=== PATIENT | female | born 1970 | race Caucasian/White ===

== ENCOUNTER → 2017-10-23 | Outpatient (CLI) | payer OTHER ==
[2017-10-23 12:15] LABS: BASO % 0.6 %; BASO ABS # 0.05 K/uL (0-0.2); EOS % 1.6 %; EOS ABS # 0.13 K/uL (0-0.5); HEMATOCRIT 39.8 % (37-47); HEMOGLOBIN 12.7 g/dL (12.0-16.0); IG# 0.01 K/uL (0.00-0.02); LYMPH % 25.4 %; LYMPH ABS # 2.03 K/uL (1.2-3.4); MEAN CELL VOLUME 88.4 fL (80-100); MEAN CORPUSCULAR HEMOGLOBIN 28.2 pg (25-34); MEAN CORPUSCULAR HGB CONC 31.9 g/dl (32-36); MEAN PLATELET VOLUME 10.3 fL (7.4-10.4); MONO % 8.8 %; NEUT % 63.5 %; NEUT ABS # 5.08 K/uL (1.4-6.5); PLATELET COUNT 302 K/uL (130-400); RED CELL DISTRIBUTION WIDTH CV 15.7 % (11.5-14.5); RED CELL DISTRIBUTION WIDTH SD 50.9 fL (36.4-46.3)
[2017-10-23 13:04] LABS: ALBUMIN 3.4 gm/dl (3.4-5.0); ALT/SGPT 23 U/L (12-78); BLOOD UREA NITROGEN 14 mg/dl (7-18); CALCIUM 9.2 mg/dl (8.5-10.1); CARBON DIOXIDE 26 mmol/L (21-32); CHOLESTEROL 201 mg/dl (0-200); CREATININE 0.98 mg/dl (0.60-1.20); GLUCOSE 95 mg/dl (70-99); POTASSIUM 4.2 mmol/L (3.5-5.1); SODIUM 139 mmol/L (136-145)
[2017-10-23 13:15] LABS: ALKALINE PHOSPHATASE 128 U/L (45-117); AST/SGOT 13 U/L (15-37); LDL CHOLESTEROL CALCULATED 109 mg/dl; TOTAL PROTEIN 8.2 gm/dl (6.4-8.2)
== END | disposition home or self-care (01) ==
LOC: C.LABBFT 07:22
PROVIDERS: ATTEND Internal Medicine
DX: Z00.00 Encounter for general adult medical examination without abnormal findings (principal); N94.6 Dysmenorrhea, unspecified; N92.0 Excessive and frequent menstruation with regular cycle

== ENCOUNTER 2023-10-03 08:41 | Inpatient (IN) ==
--- NOTE | 2023-10-03 09:21 | Emergency Department Note ---
Impression & Plan Preseptal cellulitis of right eye, Cellulitis of face ED Provider Note NAME: KENAN CLARK AGE: 53 SEX: F : 1970 ARRIVES VIA: Walk-In INFORMANT: Patient, ED PROVIDER(S): Jean Carlos Perez DO CHIEF COMPLAINT: Facial pain HPI: The patient is a 53-year-old female who presented to the emergency department for an evaluation of right-sided facial swelling. The patient started noticing facial swelling over the course the last 5 to 6 days. She was seen in our facility and started on antibiotics. She thinks that she started having an infection under her armpit. She has had staph infections in the armpit in the past. She was seen here and started on antibiotics. She also had a CT of the face. The patient returns today because of worsening swelling and pain. She denies having any chest pain or difficulty breathing. She denies having any headache. ROS: See above HPI for pertinent positives & negatives. A total of 10 systems reviewed and were otherwise negative. PAST MEDICAL HISTORY: See Below PAST SURGICAL HISTORY: See Below FAMILY HISTORY: See Below SOCIAL HISTORY: See Below HOME MEDICATIONS: See Below ALLERGIES: See Below VITALS: See Below PHYSICAL EXAMINATION: GENERAL: Patient is awake alert in no acute distress patient is resting comfortably and showing no signs of anxiety EYES: The right conjunctiva is injected. The left conjunctiva is clear. Pupils are equal round and reactive to light. EARS, NOSE, MOUTH AND THROAT: The nose is without any evidence of any deformity. There is significant swelling noted over the right side of the face. There is no pain with extraocular muscle testing. NECK: The neck is nontender and supple. RESPIRATORY: Normal respiratory effort is noted there is no evidence of wheezing rhonchi or rales CARDIOVASCULAR: Regular rate and rhythm noted there no murmurs rubs or gallops normal S1 normal S2. GASTROINTESTINAL: The abdomen is soft. Abdomen is nontender. MUSCULOSKELETAL/EXTREMITIES: There is no evidence of gross deformity full range of motion is noted in the hips and shoulders. SKIN: There is no obvious evidence of any rash. There are no petechiae, pallor or cyanosis noted. NEUROLOGIC: Patient is awake alert and oriented x3 MEDICAL DECISION MAKING: The patient is a 53-year-old female who presented to the emergency department with facial swelling. The patient was recently diagnosed with periorbital cellulitis. She was placed on appropriate antibiotic therapy but presents the emergency department because of worsening symptoms. I discussed patient's laboratory results with her. I discussed her condition with the oral maxillofacial surgeon. At this time he feels the patient may be a better candidate for IV antibiotics. For this reason I discussed the patient's condition with the [facility] They have agreed to evaluate the patient in the emergency department for further management and disposition. The patient was treated with IV antibiotics. Triage Nursing notes reviewed. Prior medical records reviewed Vital Signs: reviewed and remarkable for elevated blood pressure. Differential diagnosis: Cellulitis, abscess, MRSA infection, DVT, necrotizing fasciitis, dermatitis, drug eruption, allergic reaction, as well as other pathologies. ER treatment provided: See below Diagnostics interpreted by me: ECG: none Cardiac Monitoring: An order was placed for continuous cardiac monitoring. The monitor shows a rate of 69 bpm with sinus rhythm. Laboratory studies: As stated above and show below. Imaging studies: See below. Radiographic imaging was reviewed by myself Consultation(s): I discussed this case with Dr. Sheffield who is on-call for oral maxillofacial surgery. I discussed this case with Kenya who is on-call [facility]. Past Med/Surg History Medical History (Updated 10/03/23 @ 13:28 by Jean Carlos Perez DO) No chronic diseases present Surgical History (Updated 10/03/23 @ 11:04 by Kenya Mitchell PA-C) History of dental surgery Hx of breast reduction, elective Family History (Updated 10/03/23 @ 11:06 by Kenya Mitchell PA-C) Mother Diabetes Brother Diabetes Social History (Updated 10/03/23 @ 11:05 by Kenya Mitchell PA-C) Smoking Status: Never smoker Hx Alcohol Use: Yes Alcohol Intake Frequency Comment: Very Rare use Hx Substance Use: No Preferred Language: Canadian Feels Safe at Home: Yes Allergies Allergies Allergy/AdvReac Type Severity Reaction Status Date / Time sulfamethoxazole AdvReac Intermediate JOSE Verified 10/03/23 11:33 [From Bactrim] trimethoprim [From Bactrim] AdvReac Intermediate JOSE Verified 10/03/23 11:33 Home Meds Home Medications Medication Instructions Recorded Confirmed semaglutide (weight loss) 2.4 2.4 mg subcut WK 10/01/23 10/03/23 mg/0.75 mL subcutaneous pen injector (Chris) sulfamethoxazole 800 1 tab PO BID 10/01/23 10/03/23 mg-trimethoprim 160 mg tablet triamcinolone acetonide 0.1 % 1 applic topical BID 10/01/23 10/03/23 topical ointment Previous Rx's Medication Instructions Recorded amoxicillin 875 mg-potassium 1 tab PO BID 10 days #20 tabs 10/01/23 clavulanate 125 mg tablet Results & Data (ED) Vital Signs Vital Signs - 24 hr 10/03/23 08:59 10/03/23 09:30 10/03/23 10:27 Temperature 36.3 C L Temperature Source Temporal Artery Scan Pulse Rate 68 Pulse Rate [Apical] 66 70 Pulse Rhythm [Apical] Regular Respiratory Rate 18 16 16 Blood Pressure 154/114 H Blood Pressure [Left Arm] Blood Pressure Mean 127 Blood Pressure Mean [Left Arm] Pulse Oximetry 97 100 100 Oxygen Delivery Method Room Air Room Air Room Air Sepsis New/Unexplained Change in Mental Status No Sepsis Action Taken by Nursing No Action Required 10/03/23 11:13 10/03/23 11:33 10/03/23 12:48 Temperature Temperature Source Pulse Rate 69 Pulse Rate [Apical] 68 67 Pulse Rhythm [Apical] Respiratory Rate 16 19 Blood Pressure Blood Pressure [Left Arm] 164/88 H Blood Pressure Mean Blood Pressure Mean [Left Arm] 113 Pulse Oximetry 100 Oxygen Delivery Method Room Air Sepsis New/Unexplained Change in Mental Status Sepsis Action Taken by Shelter Medications Current Medication List: was personally reviewed by me Laboratory Data Attestation: I reviewed the patient's lab results. 10/03/23 09:24 10/03/23 09:24 Lab Results 10/03/23 Range/Units 09:24 WBC 10.60 (4.8-10.8) K/ul RBC 5.00 (4.20-5.40) M/uL Hgb 14.0 (12.0-16.0) g/dl Hct 43.8 (37.0-47.0) % MCV 87.6 (80.0-100.0) fL MCH 28.0 (25.0-34.0) pg MCHC 32.0 (32.0-36.0) g/dL RDW Std Deviation 51.5 H (36.4-46.3) fL RDW Coeff of Jessica 16.4 H (11.5-14.5) % Plt Count 355 (130-400) K/uL MPV 9.8 (9.4-12.4) fL Immature Gran % (Auto) 0.4 % Neut % (Auto) 63.2 % Lymph % (Auto) 27.8 % Mathews % (Auto) 6.2 % Eos % (Auto) 1.8 % Baso % (Auto) 0.6 % Neut # (Auto) 6.70 H (1.40-6.50) K/uL Lymph # (Auto) 2.95 (1.20-3.40) K/uL Mathews # (Auto) 0.66 H (0.11-0.59) K/uL Eos # (Auto) 0.19 (0.00-0.50) K/uL Baso # (Auto) 0.06 (0.00-0.20) K/uL Immature Gran # (Auto) 0.04 (0.01-0.20) K/uL PT 9.9 (9.0-12.0) Seconds INR 0.9 (0.9-1.1) APTT 27 (21-31) Seconds PTT Ratio 1.0 Sodium 135 L (136-145) mmol/L Potassium 3.6 (3.5-5.1) mmol/L Chloride 102 (98-107) mmol/L Carbon Dioxide 24 (21-32) mmol/L Anion Gap 9 (3-11) BUN 21 (6-23) mg/dl Creatinine 1.40 H (0.6-1.2) mg/dl Est Cr Clr Drug Dosing 54.0 ml/min Est GFR ( Amer) 49.6 ml/min Est GFR (Non-Af Amer) 42.8 ml/min BUN/Creatinine Ratio 15.0 (10-20) Glucose 81 (70-99(Fasting)) mg/dl Lactate 1.3 (0.4-2.0) mmol/L Calcium 10.3 (8.6-10.3) mg/dl Magnesium 2.2 (1.7-2.4) mg/dl Total Bilirubin 0.5 (0.2-1.0) mg/dl Direct Bilirubin 0.1 (0-0.2) mg/dl AST 25 (13-39) U/L ALT 19 (7-52) U/L Alkaline Phosphatase 127 H (34-104) U/L Troponin I High Sens 10.3 (0-14) pg/ml Total Protein 9.4 H (6.0-8.3) gm/dl Albumin 4.8 (3.4-5.0) gm/dl Procalcitonin < 0.05 (0-0.5) ng/ml Administered Medications Discontinued Medications Ceftriaxone Sodium (Rocephin) 2,000 mg in 50 mls @ 100 mls/hr IV NOW STA Stop: 10/03/23 09:45 Last Admin: 10/03/23 10:26 Dose: 100 mls/hr Documented By: KV Vancomycin HCl 2,000 mg/ (Sodium Chloride) 540 mls @ 200 mls/hr IV NOW ONE Stop: 10/03/23 12:11 Last Admin: 10/03/23 11:12 Dose: 200 mls/hr Documented By: KV Imaging Data Attestation: I personally reviewed and interpreted this imaging study as follows: My Impression: 1 view chest x-ray was obtained in the emergency department. My interpretation is no free air or definite infiltrate, final report below. Radiologist's Impression: Chest X-Ray 10/03/23 09:16 XR chest 1V portable HISTORY: Sepsis COMPARISON: Chest CT 11/20/2018. FINDINGS: The lungs are clear. Cardiac silhouette is normal in size. No pleural effusions. No pneumothorax. IMPRESSION: No acute process. ACT 112: Negative or not required by law. Electronically signed by: Juan Alberto Ibarra M.D. 10/03/2023 9:45 AM Discharge Plan Visit Data Chief Complaint: Facial Injury/Pain Stated Complaint: RIGHT SIDED FACIAL SWELLNG/DXD W/STAFF INFECTION ED Provider: Jean Carlos Perez Discharge Problem: Preseptal cellulitis of right eye, Cellulitis of face Patient Disposition: Being Evaluated by Hospitalist Forms Stand Alone Forms: My [facility] Prescriptions Prescriptions: No Action sulfamethoxazole-trimethoprim 800-160 mg tablet 1 tab PO BID triamcinolone acetonide 0.1 % ointment 1 applic TOPICAL BID Wegovy 2.4 mg/0.75 mL pen injector 2.4 mg SUBCUT WK amoxicillin-pot clavulanate 875-125 mg tablet 1 tab PO BID 10 Days Qty: 20 0RF Referrals Referrals: Saud Nelson MD [Primary Care Provider] -
[2023-10-03 09:43] LABS: Basophils # (auto) 0.06 K/uL (0.00-0.20); Basophils % (auto) 0.6 %; Eosinophils # (auto) 0.19 K/uL (0.00-0.50); Eosinophils % (auto) 1.8 %; Hematocrit (blood only) 43.8 % (37.0-47.0); Immature Granulocytes # (auto) 0.04 K/uL (0.01-0.20); Immature Granulocytes % (auto) 0.4 %; Lymphocytes # (auto) 2.95 K/uL (1.20-3.40); Lymphocytes % (auto) 27.8 %; Mean Corpuscular Volume 87.6 fL (80.0-100.0); Mean Platelet Volume 9.8 fL (9.4-12.4); Monocytes # (auto) 0.66 K/uL (0.11-0.59); Monocytes % (auto) 6.2 %; Neutrophils % (auto) 63.2 %; Platelet Count 355 K/uL (130-400); RDW Coefficient of Variation 16.4 % (11.5-14.5); RDW Standard Deviation 51.5 fL (36.4-46.3)
--- NOTE | 2023-10-03 09:47 | XRay Report ---
XR chest 1V portable HISTORY: Sepsis COMPARISON: Chest CT 11/20/2018. FINDINGS: The lungs are clear. Cardiac silhouette is normal in size. No pleural effusions. No pneumot horax. IMPRESSION: No acute process. ACT 112: Negative or not required by law. Electronically signed by: Juan Alberto Ibarra M.D. 10/03/2023 9:45 AM
[2023-10-03 09:55] LABS: Albumin Level 4.8 gm/dl (3.4-5.0); Bilirubin Direct 0.1 mg/dl (0-0.2); Bilirubin,Total 0.5 mg/dl (0.2-1.0); Calcium 10.3 mg/dl (8.6-10.3); Est GFR (African American) 49.6 ml/min; Est GFR (Non-African American) 42.8 ml/min; Magnesium 2.2 mg/dl (1.7-2.4); Potassium 3.6 mmol/L (3.5-5.1); Total Protein 9.4 gm/dl (6.0-8.3)
[2023-10-03 10:00] LABS: Troponin I High Sensitivity 10.3 pg/ml (0-14)
[2023-10-03 10:07] LABS: INR 0.9 (0.9-1.1); Partial Thromboplastin Time 27 Seconds (21-31); Prothrombin Time 9.9 Seconds (9.0-12.0)
[2023-10-03] MEDS: cefTRIAXone SODIUM 2,000 MG/50 ML BAG IV STA (10:26)
--- NOTE | 2023-10-03 10:53 | History & Physical Report ---
Date of Service October 03, 2023 Assessment & Plan (1) Preseptal cellulitis of right eye: (2) JOSE (acute kidney injury): (3) Adverse reaction to sulfa antibiotic: Plan 53 yr old F who is otherwise healthy being managed for the following: Periorbital Cellulitis admit to med/surg --Face CT from 10/01 IMPRESSION: 1. Right cheek and periorbital preseptal subcutaneous edema suggestive of cellulitis. No abscess.2. No postseptal inflammatory changes.3. Likely reactive cervical chain lymph nodes. superficial culture from 10/01 growing pinpoint colonies failed oral bactrim, recently started augmentin on 10/01 - will d/c both continue with IV vanco fro now ED discussed with Dr. Coleman Sheffield who also viewed images and felt no fluid collection noted apply vaseline to area bid JOSE Adverse reaction to sulfa antibiotic with JOSE 09/28 Bactrim D/C Bactrim - will list as ADR gentle fluids with IV LR @ 100cc/hr x 2L repeat bmp in a.m. DVT ppx: encourage ambulation FULL CODE PCP: Dr. Nelson Dispo: admit to medical, likely remain hospitalized for 1-2 days Pt was seen and examined in collaboration with Dr. Odell, please see addendum A total of 65 minutes was spent coordinating, documenting, and providing care for this patient excluding time spent in the performance of separately billed services. This included personally viewing all current laboratories and imaging studies, medication reconciliation, outpatient chart review, and discussion with specialists. History of Present Illness Chief Complaint: Worsening R sided facial swelling and redness. Primary Care Provider: Saud Nelson MD This is an otherwise healthy 53 yr old F who presents to ED due to worsening R sided facial swelling, erythema and drainage. Of significance she was seen at [facility] on 09/28 due to a infected area in her left axilla. She was placed on Bactrim and given triamcinolone cream with significant improvement in this area. Approximately 2 to 3 days ago she scratched an area underneath her right eye. She is unsure if maybe she was touching her left axillary area and then her right eye which possibly caused infection. Over last 2 to 3 days she has noted worsening swelling, erythema around her right eye. She was seen in ED on 10/01/[address] was performed. This showed right cheek and periorbital preseptal subcutaneous edema suggestive of cellulitis but no ministerio abscess. She was discharged on oral Augmentin. Despite dual therapy with antibiotics her symptoms have progressed. She denies any visual changes, eye pain or otorrhea. She also denies any headache, fever, chills, sweats, lightheadedness, dizziness, chest pain, shortness breath, nausea, vomiting, abdominal pain. She has been using topical Vaseline to the area with minimal improvement. In ED she received IV ceftriaxone and vancomycin. . Allergies Allergy/AdvReac Type Severity Reaction Status Date / Time sulfamethoxazole AdvReac Intermediate JOSE Verified 10/03/23 11:33 [From Bactrim] trimethoprim [From Bactrim] AdvReac Intermediate JOSE Verified 10/03/23 11:33 Home Medications Medication Instructions Recorded Confirmed Type amoxicillin 875 mg-potassium 1 tab PO BID 10 days #20 tabs 10/01/23 10/03/23 Rx clavulanate 125 mg tablet semaglutide (weight loss) 2.4 2.4 mg subcut WK 10/01/23 10/03/23 History mg/0.75 mL subcutaneous pen injector (Wegovy) sulfamethoxazole 800 1 tab PO BID 10/01/23 10/03/23 History mg-trimethoprim 160 mg tablet triamcinolone acetonide 0.1 % 1 applic topical BID 10/01/23 10/03/23 History topical ointment Past Med/Surg History Medical History (Updated 10/03/23 @ 11:39 by Kenya Mitchell PA-C) No chronic diseases present Surgical History (Updated 10/03/23 @ 11:04 by Kenya Mitchell PA-C) History of dental surgery Hx of breast reduction, elective Family History (Updated 10/03/23 @ 11:06 by Kenya Mitchell PA-C) Mother Diabetes Brother Diabetes Social History (Updated 10/03/23 @ 11:05 by Kenya Mitchell PA-C) Smoking Status: Never smoker Hx Alcohol Use: Yes Alcohol Intake Frequency Comment: Very Rare use Hx Substance Use: No Preferred Language: Occitan Feels Safe at Home: Yes Review of Systems Review of Systems: All systems reviewed & are unremarkable except as noted in HPI & below Physical Exam Physical Exam: Gen: WD/WN, NAD, A&O x3 HEENT: Normocephalic, atraumatic, conjunctivae moist, sclerae anicteric, mucous membranes moist. R facial erythema, edema sparing orbit. Area of excoriation to medial aspect inferior to canthus Skin: Hyperpigmentation to L axillary region, no area of purulence Please refer to Dr. Odell addendum for other physical exam findings. Results & Data Results & Data Vital Signs (Past 12 Hours) Vital Signs Temp Pulse Pulse Resp BP Pulse Ox O2 Del Method 10/03/23 10:27 70 16 100 Room Air 10/03/23 09:30 66 16 100 Room Air 10/03/23 08:59 36.3 C L 68 18 154/114 H 97 Room Air Diagnostic Findings Face CT from 10/01: IMPRESSION: 1. Right cheek and periorbital preseptal subcutaneous edema suggestive of cellulitis. No abscess. 2. No postseptal inflammatory changes. 3. Likely reactive cervical chain lymph nodes. Chest X-Ray 10/03/23 09:16 XR chest 1V portable HISTORY: Sepsis COMPARISON: Chest CT 11/20/2018. FINDINGS: The lungs are clear. Cardiac silhouette is normal in size. No pleural effusions. No pneumothorax. IMPRESSION: No acute process. ACT 112: Negative or not required by law. Electronically signed by: Juan Alberto Ibarra M.D. 10/03/2023 9:45 AM Medications Administered Medication List Vancomycin HCl 2,000 mg/ (Sodium Chloride) 540 mls @ 200 mls/hr IV NOW ONE Stop: 10/03/23 12:11 Last Admin: 10/03/23 11:12 Dose: 200 mls/hr Documented By: GLADIS Discontinued Medications Ceftriaxone Sodium (Rocephin) 2,000 mg in 50 mls @ 100 mls/hr IV NOW STA Stop: 10/03/23 09:45 Last Admin: 10/03/23 10:26 Dose: 100 mls/hr Documented By: GLADIS ECG Rate (beats per minute): 66 Rhythm: normal sinus COVID-19 Results Results COVID-19 Adm Lab Results: RBC 5.00 M/uL (4.20-5.40) 10/03/23 WBC 10.60 K/ul (4.8-10.8) 10/03/23 Hgb 14.0 g/dl (12.0-16.0) 10/03/23 Hct 43.8 % (37.0-47.0) 10/03/23 Plt Count 355 K/uL (130-400) 10/03/23 Neutrophils (%) (Auto) 63.2 % 10/03/23 Lymphocytes (%) (Auto) 27.8 % 10/03/23 Monocytes # (Auto) 0.66 K/uL (0.11-0.59) H 10/03/23 Eosinophils # (Auto) 0.19 K/uL (0.00-0.50) 10/03/23 Immature Granulocyte % (Auto) 0.4 % 10/03/23 Neutrophils # (Auto) 6.70 K/uL (1.40-6.50) H 10/03/23 Lymphocytes # (Auto) 2.95 K/uL (1.20-3.40) 10/03/23 Monocytes # (Auto) 0.66 K/uL (0.11-0.59) H 10/03/23 Eosinophils # (Auto) 0.19 K/uL (0.00-0.50) 10/03/23 Basophils # (Auto) 0.06 K/uL (0.00-0.20) 10/03/23 Immature Granulocyte # (Auto) 0.04 K/uL (0.01-0.20) 4 Na 135 mmol/L (136-145) L 10/03/23 K 3.6 mmol/L (3.5-5.1) 10/03/23 Cl 102 mmol/L (98-107) 10/03/23 CO2 24 mmol/L (21-32) 10/03/23 Anion Gap 9 (3-11) 10/03/23 BUN 21 mg/dl (6-23) 10/03/23 Creatinine 1.40 mg/dl (0.6-1.2) H 10/03/23 BUN/Creatinine Ratio 15.0 (10-20) 10/03/23 Glucose Level 81 mg/dl (70-99(Fasting)) 10/03/23 Ca 10.3 mg/dl (8.6-10.3) 10/03/23 Total Bilirubin 0.5 mg/dl (0.2-1.0) 10/03/23 Direct Bilirubin 0.1 mg/dl (0-0.2) 10/03/23 AST/SGOT 25 U/L (13-39) 10/03/23 ALT/SGPT 19 U/L (7-52) 10/03/23 Alkaline Phosphatase 127 U/L (34-104) H 10/03/23 Total Protein 9.4 gm/dl (6.0-8.3) H 10/03/23 Albumin 4.8 gm/dl (3.4-5.0) 10/03/23 Procalcitonin < 0.05 ng/ml (0-0.5) 10/03/23 PTT 27 Seconds (21-31) 10/03/23 INR 0.9 (0.9-1.1) 10/03/23 Chest X-Ray 10/03/23 Code Status & VTE Plan Code Status FULL CODE Supervising Physician Co-Signing Physician Notes I have seen and examined the patient and have discussed the case with the provider above. I have reviewed the advanced practitioner's documentation, and I agree with, and take responsibility for that plan of care. The patient is a 52 yo F who presents with persistent periorbital cellulitis refractory to outpatient antibiotics. History as noted above. She denies any visual changes or pain in her eye itself and denies any discomfort aside from slight burning where she has a minor scratch just inferior to the right eye. She has slight swelling of the right face with erythema and a wet appearance to the skin. There is no fluctuance of the skin/cheek, no involvement of the tongue or internal mouth, and no significantly palpable submandibular or cervical LAD present. She has a history of axillary infection on the left and feels she may have scratched this area and then touched her right face. She had been treated with a topical triamcinolone ointment in addition to the abx which she was applying to the left axilla. There is no significant erythema present but there is a darkening of the skin over the hair follicles. She was advised to stop using the steroid ointment and verbalized understanding with intent to comply. There is a mild erythematous scattered, papular rash that extends over the top of her left shoulder and onto the upper posterior shoulder. This is appears to be healing. VSS reveal 164/88 with elevated pressure felt to be situational given no history of HTN. Pulse is 68, normal respiratory rate and effort observed, and she is afebrile. She is oxygenating well on room air. Lungs are clear to auscultation throughout and CV exam reveals S1/2 heard without m/g/r and reg rate and rhythm. There is no peripheral edema and all skin was not evaluated, however, patient reported no other areas of skin concern. CN 2-12 were grossly intact and she has no gross focal neuromuscular deficits present. EOMI and pupils are round and equal to light. Labwork and imaging and EKG reviewed and discussed with provider above. There is no leukocytosis and no evidence of sepsis. She has a mild JOSE, likely related to recent Bactrim use. FAce CT and head CT and cultures from previous encounter recently were also reviewed. At this point there is nothing surgical to evaluate. Agree with vancomycin therapy with de-escalation to oral abx again once cellulitis shows signs of improvement. Will given petroleum jelly for comfort in her upper cheek area where she has the scratch. Expect 1-2 days in the hospital, which may be longer based on her response to abx. I spent a total [id number] coordinating, documenting, and providing care for this patient excluding time spent in the performance of separately billed services. DO Jose R
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
[2023-10-03] MEDS: VANCOMYCIN HCL 2,000 MG in SODIUM CHLORIDE 0.9% 500 ML IV ONE (11:12)
--- NOTE | 2023-10-03 11:35 | Electrocardiogram Report ---
Test Reason : Blood Pressure : / mmHG Vent. Rate : 066 BPM Atrial Rate : 066 BPM P-R Int : 122 ms QRS Dur : 078 ms QT Int : 412 ms P-R-T Axes : 054 009 -31 degrees QTc Int : 431 ms Normal sinus rhythm Minimal voltage criteria for LVH, may be normal variant ( R in aVL ) Diffuse Minor Nonspecific T wave abnormality Abnormal ECG When compared with ECG of 20-NOV-2018 14:12, Nonspecific T wave abnormality, worse in Lateral leads Confirmed by Luis Armando Buchanan ([id number]) on 10/03/2023 11:34:44 AM Referred By: Confirmed By:Luis Armando Buchanan
[2023-10-03] MEDS ORDERED: ACETAMINOPHEN 325 MG TAB PO PRN (14:15)
[2023-10-03] MEDS ORDERED: ALUMINUM/MAGNESIUM SUSP 30 ML UDC PO PRN (14:15)
[2023-10-03] MEDS ORDERED: POLYETHYLENE (MIRALAX) 17 GM PACK PO PRN (14:15)
[2023-10-03] MEDS ORDERED: ONDANSETRON INJ 2 MG/ML 2 ML VIAL IV PRN (14:15)
[2023-10-03] MEDS ORDERED: MAGNESIUM HYDROXIDE SUSP 30 ML UDC PO PRN (14:15)
[2023-10-03] MEDS ORDERED: VANCOMYCIN CONSULT ACTIVE PRN (14:15)
--- NOTE | 2023-10-03 14:51 | Pharmacy Report ---
Pharmacy PK ABX Note - Date of Service October 03, 2023 - Assessment and Plan Assessment * 53 year old F receiving VANCOMCYIN for treatment of preseptal cellulitis. Patient had been receiving Bactrim and Augmentin w/o improvement * CT Face read as: * IMPRESSION: 1. Right cheek and periorbital preseptal subcutaneous edema suggestive of cellulitis. No abscess. 2. No postseptal inflammatory changes. 3. Likely reactive cervical chain lymph nodes. * Pertinent microbiologic data includes: 10/01 R eye cx "pin-point growth" still incubating; 10/03 BLCXs pending * Day # 1 of antimicrobial therapy. Plan Vancomycin * Loading dose: 2000 mg IV x 1 * Maintenance dose: 1000 mg IV every 18 hours * Regimen is predicted to achieve target AUC/LOU of 400-600 mg/L.hr * I have not yet ordered a drug level as renal fxn likely to improve over next 24-48 hrs necessitating change in dose/interval. Will reeval dose and need for level daily Pharmacy will continue to follow and will adjust dose/frequency as necessary. Thank you. Pharmacy has transitioned to AUC monitoring for vancomycin. AUC/LOU is the preferred PK/PD target and is associated with decreased risk of nephrotoxicity compared to traditional trough targets.
[2023-10-03] MEDS: LACTATED RINGER'S 1,000 ML IV SCH (16:10)
--- NOTE | 2023-10-03 17:37 | Oral/Maxillofacial Consult ---
Date of Consultation October 03, 2023 History of Present Illness Attending Physician: Ruth Odell DO History of Present Illness looks to be a superficial staph infection (folliculitis ) right infraorbital area right cheek. The IV anabiotics has help the swelling and now she is able to open her eye. No Eye symptoms noted. There is no oral swelling to suggest a dental cause. I would suggest the IV antibiotics and alternating with warm and cold packs over the next 24 hours. I dry wash cloth on the eye with an ice pack for 30 minutes then switch to warm compress will work well. Avoid any soaps and just clean with Steril water apply petroleum jelly to keep the site moist--no typical antibiotic ointments. I will Maru tomorrow afternoon if she continues to improve she can be d/c on oral antibiotics and local skin care. Allergies Allergy/AdvReac Type Severity Reaction Status Date / Time sulfamethoxazole AdvReac Intermediate JOSE Verified 10/03/23 11:33 [From Bactrim] trimethoprim [From Bactrim] AdvReac Intermediate JOSE Verified 10/03/23 11:33 Home Medications Medication Instructions Recorded Confirmed Type amoxicillin 875 mg-potassium 1 tab PO BID 10 days #20 tabs 10/01/23 10/03/23 Rx clavulanate 125 mg tablet semaglutide (weight loss) 2.4 2.4 mg subcut WK 10/01/23 10/03/23 History mg/0.75 mL subcutaneous pen injector (Briandavevon) sulfamethoxazole 800 1 tab PO BID 10/01/23 10/03/23 History mg-trimethoprim 160 mg tablet triamcinolone acetonide 0.1 % 1 applic topical BID 10/01/23 10/03/23 History topical ointment Patient History Medical History (Updated 10/03/23 @ 13:28 by Jean Carlos Perez DO) No chronic diseases present Surgical History (Updated 10/03/23 @ 11:04 by Kenya Mitchell PA-C) History of dental surgery Hx of breast reduction, elective Family History (Updated 10/03/23 @ 11:06 by Kenya Mitchell PA-C) Mother Diabetes Brother Diabetes Social History (Updated 10/03/23 @ 11:05 by Kenya Mitchell PA-C) Smoking Status: Never smoker Hx Alcohol Use: Yes Alcohol Intake Frequency Comment: Very Rare use Hx Substance Use: No Preferred Language: Marshallese Communication Ability: Effective Powder Mill Operator Required: No Beliefs That Will Affect Care: None Current Living Situation: Alone Feels Safe at Home: Yes Safety Concerns: Feels Safe At This Time Assistive Devices: None Results & Data Vital Signs (Past 12 Hours) Vital Signs Temp Pulse Pulse Pulse Resp BP BP 10/03/23 15:57 36.5 C 67 16 128/91 10/03/23 14:07 10/03/23 14:00 85 20 161/96 H 10/03/23 12:48 69 10/03/23 11:33 67 19 10/03/23 11:13 68 16 164/88 H 10/03/23 10:27 70 16 10/03/23 09:30 66 16 10/03/23 08:59 36.3 C L 68 18 154/114 H Pulse Ox O2 Del Method 10/03/23 15:57 97 Room Air 10/03/23 14:07 99 Room Air 10/03/23 14:00 99 Room Air 10/03/23 12:48 10/03/23 11:33 10/03/23 11:13 100 Room Air 10/03/23 10:27 100 Room Air 10/03/23 09:30 100 Room Air 10/03/23 08:59 97 Room Air PG Care Time/CCT Total # of Minutes Spent Total Time Spent with Patient: Total time spent is greater than 50% in coordination of care (as documented) at patient's floor/unit and/or counseling patient: Coding Level of Care Code 83982 OFFICE CONSULT LVL
[2023-10-04] MEDS: VANCOMYCIN HCL 1,000 MG in SODIUM CHLORIDE 0.9% 250 ML IV SCH ×2 (01:58→12:05)
[2023-10-04 07:13] LABS: Basophils # (auto) 0.07 K/uL (0.00-0.20); Basophils % (auto) 0.9 %; Eosinophils # (auto) 0.46 K/uL (0.00-0.50); Eosinophils % (auto) 5.7 %; Hematocrit (blood only) 35.8 % (37.0-47.0); Hemoglobin 11.6 g/dl (12.0-16.0); Immature Granulocytes # (auto) 0.03 K/uL (0.01-0.20); Immature Granulocytes % (auto) 0.4 %; Lymphocytes # (auto) 3.67 K/uL (1.20-3.40); Lymphocytes % (auto) 45.6 %; Mean Corpuscular Hemoglobin 28.3 pg (25.0-34.0); Mean Corpuscular Hgb Conc 32.4 g/dL (32.0-36.0); Mean Corpuscular Volume 87.3 fL (80.0-100.0); Mean Platelet Volume 9.9 fL (9.4-12.4); Monocytes # (auto) 0.62 K/uL (0.11-0.59); Monocytes % (auto) 7.7 %; Neutrophils % (auto) 39.7 %; Platelet Count 282 K/uL (130-400); RDW Coefficient of Variation 16.1 % (11.5-14.5); RDW Standard Deviation 51.4 fL (36.4-46.3); White Blood Count 8.05 K/ul (4.8-10.8)
[2023-10-04 07:22] LABS: BUN Creatinine Ratio 12.6 (10-20); Creatinine Clr Calc Pharmacy 68.3 ml/min; Est GFR (African American) 65.7 ml/min; Est GFR (Non-African American) 56.7 ml/min
--- NOTE | 2023-10-04 09:36 | Procedure Note ---
Procedure Note Date of Service October 04, 2023 Note Maru feels she is getting better. Skill edema of the right infraorbital area, bridge of the nose and upper eye lid more on the right. Also right Parotid gland swelling, no drainage looks to be edema. There is no abscess to drain as this is soft edema from the superficial staph infection. I will see Mrau this evening and if she is improving we can consider D/C with local skin care and oral antibiotics. Coding
[2023-10-04] MEDS: SODIUM CHLORIDE 0.9% 1,000 ML IV ONE (11:11)
[2023-10-04] MEDS: cefTRIAXone SODIUM 2,000 MG in DEXTROSE 5 % MINI-B 50 ML IV SCH (11:11)
[2023-10-04] MEDS: diphenhydrAMINE HCL 25 MG/10 ML UDC PO PRN (12:04)
--- NOTE | 2023-10-04 15:54 | Hospitalist Progress Note ---
Date of Service October 04, 2023 Assessment & Plan (1) Preseptal cellulitis of right eye: (2) JOSE (acute kidney injury): (3) Adverse reaction to sulfa antibiotic: Plan 53 yr old F who is otherwise healthy being managed for the following: Periorbital Cellulitis --Face CT: Right cheek and periorbital preseptal subcutaneous edema suggestive of cellulitis. No abscess.2. No postseptal inflammatory changes.3. Likely reactive cervical chain lymph nodes. --Superficial wound culture from 2/5 grew coagulase-negative staph -- Blood cultures negative to date --Failed Bactrim/Augmentin therapy Continue vancomycin, Rocephin for now Appreciate postdoctoral research associate input Benadryl as needed JOSE Likely due to Bactrim use Creatinine levels improved Avoid nephrotoxic agents as able Monitor renal function Continue IV fluids Obesity BMI 35 DVT Px: Encourage ambulation SCDs Code Status FULL CODE Admission and Anticipated Discharge Date Admission Date: October 03, 2023 Subjective Patient is seen and examined at bedside Right facial/periorbital swelling, erythema slowly improving States having some itchiness Denies any facial pain Also denies any vision change, chest pain, dyspnea, nausea, vomiting, abdominal pain Review of Systems Review of Systems: All systems reviewed & are unremarkable except as noted in Subjective Physical Exam Physical Exam: Physical Exam: Vitals signs as noted above General Appearance:Obese, no apparent distress Head: normocephalic, Atraumatic Eyes: normal inspection, EOMI,+ right periorbital/Facial erythema, swelling, excoriation Neck: supple, Trachea midline Respiratory/Chest: Normal breath sounds, CTA, No accessory muscle use Cardiovascular: S1, S2, No murmur Abdomen/GI:Soft, Non tender, Bowel sounds present Extremities/Musculoskeletal:normal inspection, no edema Neurologic/Psych:AAOX3, grossly no focal neurological deficits Skin: normal color, warm Results & Data Results & Data Vital Signs (Past 12 Hours) Vital Signs Temp Pulse Resp BP Pulse Ox O2 Del Method 10/04/23 11:48 36.9 C 69 16 135/86 100 Room Air Laboratory Results Short CBC 10/04/23 Range/Units 06:43 WBC 8.05 (4.8-10.8) K/ul Hgb 11.6 L (12.0-16.0) g/dl Hct 35.8 L (37.0-47.0) % Plt Count 282 (130-400) K/uL BMP 10/04/23 06:43 Sodium 137 Potassium 4.0 Chloride 107 Carbon Dioxide 23 BUN 14 Creatinine 1.11 Glucose 87 Calcium 9.0
[2023-10-05 07:32] LABS: Hematocrit (blood only) 38.3 % (37.0-47.0); Hemoglobin 12.1 g/dl (12.0-16.0); Mean Corpuscular Hemoglobin 27.8 pg (25.0-34.0); Mean Corpuscular Hgb Conc 31.6 g/dL (32.0-36.0); Mean Corpuscular Volume 87.8 fL (80.0-100.0); Mean Platelet Volume 9.7 fL (9.4-12.4); Platelet Count 279 K/uL (130-400); RDW Coefficient of Variation 15.9 % (11.5-14.5); RDW Standard Deviation 51.6 fL (36.4-46.3); Red Blood Count 4.36 M/uL (4.20-5.40); White Blood Count 6.92 K/ul (4.8-10.8)
[2023-10-05 07:49] LABS: BUN Creatinine Ratio 12.5 (10-20); Calcium 9.3 mg/dl (8.6-10.3); Est GFR (African American) 78.3 ml/min; Est GFR (Non-African American) 67.5 ml/min; Potassium 3.8 mmol/L (3.5-5.1)
[2023-10-05] MEDS: AMPICILLIN/SULBACTAM SOD 3,000 MG in SODIUM CHLOR 0.9% MINI-B 100 ML IV SCH (13:52)
--- NOTE | 2023-10-05 16:23 | Hospitalist Progress Note ---
Date of Service October 05, 2023 Assessment & Plan (1) Preseptal cellulitis of right eye: (2) JOSE (acute kidney injury): (3) Adverse reaction to sulfa antibiotic: Plan 53 yr old F who is otherwise healthy being managed for the following: Periorbital Cellulitis --Face CT: Right cheek and periorbital preseptal subcutaneous edema suggestive of cellulitis. No abscess. No postseptal inflammatory changes.Likely reactive cervical chain lymph nodes. --Superficial wound culture from 2/5 grew coagulase-negative staph -- Blood cultures negative to date --Failed Bactrim/Augmentin therapy Continue vancomycin, Rocephin>> changed to vancomycin, Unasyn Appreciate behavioral health clinician input Benadryl as needed Continue above management Will consider repeat imaging if no improvement JOSE Likely due to Bactrim use Creatinine levels normalized with IV fluids Avoid nephrotoxic agents as able Monitor renal function Received IV fluids Resolved Obesity BMI 35 DVT Px: Encourage ambulation SCDs Code Status FULL CODE Admission and Anticipated Discharge Date Admission Date: October 03, 2023 Subjective Patient is seen and examined at bedside Patient concerned about mild swelling on left side of the face as well Still has Right facial/periorbital swelling, erythema Denies any vision change, chest pain, dyspnea, nausea, vomiting, abdominal pain No other complaints Review of Systems Review of Systems: All systems reviewed & are unremarkable except as noted in Subjective Physical Exam Physical Exam: Physical Exam: Vitals signs as noted above General Appearance:Obese, no apparent distress Head: normocephalic, Atraumatic Eyes: normal inspection, EOMI,+ right periorbital/Facial erythema, swelling, excoriation Neck: supple, Trachea midline Respiratory/Chest: Normal breath sounds, CTA, No accessory muscle use Cardiovascular: S1, S2, No murmur Abdomen/GI:Soft, Non tender, Bowel sounds present Extremities/Musculoskeletal:normal inspection, no edema Neurologic/Psych:AAOX3, grossly no focal neurological deficits Skin: normal color, warm Results & Data Results & Data Vital Signs (Past 12 Hours) Vital Signs Temp Pulse Resp BP Pulse Ox O2 Del Method 10/05/23 14:44 36.8 C 79 16 104/73 98 Room Air 10/05/23 07:52 36.6 C 68 16 145/88 H 97 Room Air Laboratory Results Short CBC 10/05/23 Range/Units 07:09 WBC 6.92 (4.8-10.8) K/ul Hgb 12.1 (12.0-16.0) g/dl Hct 38.3 (37.0-47.0) % Plt Count 279 (130-400) K/uL [facility] 10/05/23 07:09 Sodium 134 L Potassium 3.8 Chloride 103 Carbon Dioxide 26 BUN 12 Creatinine 0.96 Glucose 87 Calcium 9.3
[2023-10-06 06:44] LABS: Hematocrit (blood only) 34.4 % (37.0-47.0); Hemoglobin 11.5 g/dl (12.0-16.0); Mean Corpuscular Hemoglobin 28.8 pg (25.0-34.0); Mean Corpuscular Hgb Conc 33.4 g/dL (32.0-36.0); Mean Platelet Volume 9.9 fL (9.4-12.4); Platelet Count 285 K/uL (130-400); RDW Standard Deviation 50.2 fL (36.4-46.3); White Blood Count 8.71 K/ul (4.8-10.8)
[2023-10-06 07:37] LABS: BUN Creatinine Ratio 16.5 (10-20); Calcium 9.1 mg/dl (8.6-10.3); Creatinine Clr Calc Pharmacy 78.2 ml/min; Est GFR (African American) 77.3 ml/min; Est GFR (Non-African American) 66.7 ml/min
--- NOTE | 2023-10-06 09:26 | Oral/Maxillofacial Progress Nt ---
Date of Service October 06, 2023 Assessment & Plan Admission and Anticipated Discharge Date Admission Date: October 03, 2023 Subjective Post Op infection evaluation 3 days The infected area is now starting to improve, great improvement over yesterday Swelling is almost gone and the tissue is soft and the edema is resolving very well No drainage is noted. Cultures were reviewed. Infection has responded very well to the antibiotics and the supportive care I requested that the patient continue with massage, cool compresses and wound care. At this time the area has responded well to treatment. OK for treatment with oral antibiotics (Augmentin which she has at home) RTC Maru will call my office to make arrangements in 7-10 days for follow up Results & Data Vital Signs (Past 12 Hours) Vital Signs Temp Pulse Resp BP Pulse Ox O2 Del Method 10/06/23 07:26 36.9 C 81 16 153/95 H 98 Room Air PG Care Time/CCT Total # of Minutes Spent Total Time Spent with Patient: Total time spent is greater than 50% in coordination of care (as documented) at patient's floor/unit and/or counseling patient: Coding Level of Care Code None
[2023-10-06] MEDS: amLODIPine BESYLATE 5 MG TAB PO SCH (10:47)
--- NOTE | 2023-10-06 11:51 | Pharmacy Report ---
Pharmacy PK ABX Note - Date of Service October 06, 2023 - Assessment and Plan Assessment 10/06: * Continues on vanc/Unasyn for periorbital cellulitis. Renal function stable. Blood cultures NGTD. 10/01 eye culture (+) CoNS. Day # 4 vancomycin. 10/03: * 53 year old F receiving VANCOMCYIN for treatment of preseptal cellulitis. Patient had been receiving Bactrim and Augmentin w/o improvement * CT Face read as: * IMPRESSION: 1. Right cheek and periorbital preseptal subcutaneous edema suggestive of cellulitis. No abscess. 2. No postseptal inflammatory changes. 3. Likely reactive cervical chain lymph nodes. * Pertinent microbiologic data includes: 10/01 R eye cx "pin-point growth" still incubating; 10/03 BLCXs pending * Day # 1 of antimicrobial therapy. Plan Vancomycin * Current regimen: vanc 1gm IV q12h * Random level this AM, 11.5mcg/mL (~9.5hr level). Predicted to achieve ssAUC 435mg/L.hr with a 72% probability. * Increase dose to 1250mg IV q12h- predicted to achieve ssAUC 531mg/L.hr with a 98% probability and 10% risk of toxicity. * Repeat level in ~ 48h if vanc continues. Pharmacy will continue to follow and will adjust dose/frequency as necessary. Thank you. Pharmacy has transitioned to AUC monitoring for vancomycin. AUC/LOU is the preferred PK/PD target and is associated with decreased risk of nephrotoxicity compared to traditional trough targets.
[2023-10-06] MEDS: VANCOMYCIN HCL 1,250 MG in SODIUM CHLORIDE 0.9% 250 ML IV SCH (12:50)
--- NOTE | 2023-10-06 14:14 | Hospitalist Progress Note ---
Date of Service October 06, 2023 Assessment & Plan (1) Preseptal cellulitis of right eye: (2) JOSE (acute kidney injury): (3) Adverse reaction to sulfa antibiotic: Plan 53 yr old F who is otherwise healthy being managed for the following: Periorbital Cellulitis --Face CT: Right cheek and periorbital preseptal subcutaneous edema suggestive of cellulitis. No abscess. No postseptal inflammatory changes.Likely reactive cervical chain lymph nodes. --Superficial wound culture from 2/5 grew coagulase-negative staph and gram- positive bacilli -- Blood cultures negative to date --Failed Bactrim/Augmentin therapy Continue vancomycin, Rocephin>> changed to vancomycin, Unasyn Appreciate behavioral health counselor input Benadryl as needed Clinically improving Likely transition to p.o. antibiotics tomorrow Wound culture also growing gram-positive bacilli JOSE Likely due to Bactrim use Creatinine levels normalized with IV fluids Avoid nephrotoxic agents as able Monitor renal function Received IV fluids Resolved Hypertension Started on amlodipine Monitor Obesity BMI 35 DVT Px: Encourage ambulation SCDs Code Status FULL CODE Admission and Anticipated Discharge Date Admission Date: October 03, 2023 Subjective Patient is seen and examined at bedside Right facial erythema, swelling, excoriation much improved No new complaints Feels better today Denies any vision change, chest pain, dyspnea, nausea, vomiting, abdominal pain Review of Systems Review of Systems: All systems reviewed & are unremarkable except as noted in Subjective Physical Exam Physical Exam: Physical Exam: Vitals signs as noted above General Appearance:Obese, no apparent distress Head: normocephalic, Atraumatic Eyes: normal inspection, EOMI,+ right periorbital/Facial erythema, swelling improving Neck: supple, Trachea midline Respiratory/Chest: Normal breath sounds, CTA, No accessory muscle use Cardiovascular: S1, S2, No murmur Abdomen/GI:Soft, Non tender, Bowel sounds present Extremities/Musculoskeletal:normal inspection, no edema Neurologic/Psych:AAOX3, grossly no focal neurological deficits Skin: normal color, warm Results & Data Results & Data Vital Signs (Past 12 Hours) Vital Signs Temp Pulse Resp BP Pulse Ox O2 Del Method 10/06/23 10:46 146/92 H 10/06/23 07:26 36.9 C 81 16 153/95 H 98 Room Air Laboratory Results Short CBC 10/06/23 Range/Units 05:46 WBC 8.71 (4.8-10.8) K/ul Hgb 11.5 L (12.0-16.0) g/dl Hct 34.4 L (37.0-47.0) % Plt Count 285 (130-400) K/uL [facility] 10/06/23 05:46 Sodium 137 Potassium 4.0 Chloride 105 Carbon Dioxide 26 BUN 16 Creatinine 0.97 Glucose 92 Calcium 9.1
[2023-10-06] MEDS: MELATONIN 3 MG TAB PO PRN (20:56)
[2023-10-07 06:37] LABS: Hemoglobin 11.9 g/dl (12.0-16.0); Mean Corpuscular Hemoglobin 28.2 pg (25.0-34.0); Mean Corpuscular Hgb Conc 33.1 g/dL (32.0-36.0); Mean Corpuscular Volume 85.3 fL (80.0-100.0); Mean Platelet Volume 9.6 fL (9.4-12.4); Platelet Count 282 K/uL (130-400); RDW Standard Deviation 49.4 fL (36.4-46.3); Red Blood Count 4.22 M/uL (4.20-5.40); White Blood Count 8.69 K/ul (4.8-10.8)
[2023-10-07 07:09] LABS: BUN Creatinine Ratio 13.9 (10-20); Calcium 9.5 mg/dl (8.6-10.3); Creatinine Clr Calc Pharmacy 105.3 ml/min; Est GFR (African American) 110.8 ml/min; Est GFR (Non-African American) 95.6 ml/min; Potassium 3.7 mmol/L (3.5-5.1)
--- NOTE | 2023-10-07 11:50 | Hospitalist Progress Note ---
Date of Service October 07, 2023 Assessment & Plan (1) Preseptal cellulitis of right eye: (2) JOSE (acute kidney injury): (3) Adverse reaction to sulfa antibiotic: Plan 53 yr old F who is otherwise healthy being managed for the following: Periorbital Cellulitis --Face CT: Right cheek and periorbital preseptal subcutaneous edema suggestive of cellulitis. No abscess. No postseptal inflammatory changes.Likely reactive cervical chain lymph nodes. --Superficial wound culture from 2/5 grew coagulase-negative staph and gram- positive bacilli -- Blood cultures negative to date --Failed Bactrim/Augmentin therapy Continue vancomycin, Rocephin>> changed to vancomycin, Unasyn Appreciate behavioral intervention specialist input Benadryl as needed Clinically improved Plan to transition to Augmentin and doxycycline to complete the antibiotic course JOSE Likely due to Bactrim use Creatinine levels normalized with IV fluids Avoid nephrotoxic agents as able Monitor renal function Received IV fluids Resolved Hypertension Started on amlodipine 5 mg daily Monitor Obesity BMI 35 DVT Px: Encourage ambulation SCDs Code Status FULL CODE Admission and Anticipated Discharge Date Admission Date: October 03, 2023 Subjective Patient is seen and examined at bedside Subjectively feels much better Right facial erythema, swelling improved Denies any vision change, chest pain, dyspnea, nausea, vomiting, abdominal pain Plan to be discharged home today Review of Systems Review of Systems: All systems reviewed & are unremarkable except as noted in Subjective Physical Exam Physical Exam: Physical Exam: Vitals signs as noted above General Appearance:Obese, no apparent distress Head: normocephalic, Atraumatic Eyes: normal inspection, EOMI,+ right periorbital/Facial erythema, swelling improving Neck: supple, Trachea midline Respiratory/Chest: Normal breath sounds, CTA, No accessory muscle use Cardiovascular: S1, S2, No murmur Abdomen/GI:Soft, Non tender, Bowel sounds present Extremities/Musculoskeletal:normal inspection, no edema Neurologic/Psych:AAOX3, grossly no focal neurological deficits Skin: normal color, warm Results & Data Results & Data Vital Signs (Past 12 Hours) Vital Signs Temp Pulse BP Pulse Ox O2 Del Method 10/07/23 07:40 36.7 C 69 140/87 100 Room Air Laboratory Results Short CBC 10/07/23 Range/Units 06:08 WBC 8.69 (4.8-10.8) K/ul Hgb 11.9 L (12.0-16.0) g/dl Hct 36.0 L (37.0-47.0) % Plt Count 282 (130-400) K/uL [facility] 10/07/23 06:08 Sodium 136 Potassium 3.7 Chloride 104 Carbon Dioxide 27 BUN 10 Creatinine 0.72 Glucose 91 Calcium 9.5
--- NOTE | 2023-10-07 11:59 | Discharge Summary ---
Date of Service October 07, 2023 Admission HPI Per Admitting Provider This is an otherwise healthy 53 yr old F who presents to ED due to worsening R sided facial swelling, erythema and drainage. Of significance she was seen at [facility] on 09/28 due to a infected area in her left axilla. She was placed on Bactrim and given triamcinolone cream with significant improvement in this area. Approximately 2 to 3 days ago she scratched an area underneath her right eye. She is unsure if maybe she was touching her left axillary area and then her right eye which possibly caused infection. Over last 2 to 3 days she has noted worsening swelling, erythema around her right eye. She was seen in ED on 10/01/[address] was performed. This showed right cheek and periorbital preseptal subcutaneous edema suggestive of cellulitis but no ministerio abscess. She was discharged on oral Augmentin. Despite dual therapy with antibiotics her symptoms have progressed. She denies any visual changes, eye pain or otorrhea. She also denies any headache, fever, chills, sweats, lightheadedness, dizziness, chest pain, shortness breath, nausea, vomiting, abdominal pain. She has been using topical Vaseline to the area with minimal improvement. In ED she received IV ceftriaxone and vancomycin. . Admission Exam Per Admitting Provider Gen: WD/WN, NAD, A&O x3 HEENT: Normocephalic, atraumatic, conjunctivae moist, sclerae anicteric, mucous membranes moist. R facial erythema, edema sparing orbit. Area of excoriation to medial aspect inferior to canthus Skin: Hyperpigmentation to L axillary region, no area of purulence Please refer to Dr. Odell addendum for other physical exam findings. Principal Diagnosis Right Periorbital Cellulitis Acute kidney injury Hypertension Discharge Data Allergies Allergy/AdvReac Type Severity Reaction Status Date / Time sulfamethoxazole AdvReac Intermediate JOSE Verified 10/03/23 11:33 [From Bactrim] trimethoprim [From Bactrim] AdvReac Intermediate JOSE Verified 10/03/23 11:33 Consultations 10/03/23 10:37 ED Decision to Admit Stat Procedures Performed Laboratory Results WBC 8.69 K/ul (4.8-10.8) 10/07/23 06:08 RBC 4.22 M/uL (4.20-5.40) 10/07/23 06:08 Hgb 11.9 g/dl (12.0-16.0) L 10/07/23 06:08 Hct 36.0 % (37.0-47.0) L 10/07/23 06:08 MCV 85.3 fL (80.0-100.0) 10/07/23 06:08 MCH 28.2 pg (25.0-34.0) 10/07/23 06:08 MCHC 33.1 g/dL (32.0-36.0) 10/07/23 06:08 RDW Std Deviation 49.4 fL (36.4-46.3) H 10/07/23 06:08 RDW Coeff of Jessica 16.0 % (11.5-14.5) H 10/07/23 06:08 Plt Count 282 K/uL (130-400) 10/07/23 06:08 MPV 9.6 fL (9.4-12.4) 10/07/23 06:08 Immature Gran % (Auto) 0.4 % 10/04/23 06:43 Neut % (Auto) 39.7 % 10/04/23 06:43 Lymph % (Auto) 45.6 % 10/04/23 06:43 Hubbard % (Auto) 7.7 % 10/04/23 06:43 Eos % (Auto) 5.7 % 10/04/23 06:43 Baso % (Auto) 0.9 % 10/04/23 06:43 Neut # (Auto) 3.20 K/uL (1.40-6.50) 10/04/23 06:43 Lymph # (Auto) 3.67 K/uL (1.20-3.40) H 10/04/23 06:43 Hubbard # (Auto) 0.62 K/uL (0.11-0.59) H 10/04/23 06:43 Eos # (Auto) 0.46 K/uL (0.00-0.50) 10/04/23 06:43 Baso # (Auto) 0.07 K/uL (0.00-0.20) 10/04/23 06:43 Immature Gran # (Auto) 0.03 K/uL (0.01-0.20) 10/04/23 06:43 PT 9.9 Seconds (9.0-12.0) 10/03/23 09:24 INR 0.9 (0.9-1.1) 10/03/23 09:24 APTT 27 Seconds (21-31) 10/03/23 09:24 PTT Ratio 1.0 10/03/23 09:24 Sodium 136 mmol/L (136-145) 10/07/23 06:08 Potassium 3.7 mmol/L (3.5-5.1) 10/07/23 06:08 Chloride 104 mmol/L (98-107) 10/07/23 06:08 Carbon Dioxide 27 mmol/L (21-32) 10/07/23 06:08 Anion Gap 5 (3-11) 10/07/23 06:08 BUN 10 mg/dl (6-23) 10/07/23 06:08 Creatinine 0.72 mg/dl (0.6-1.2) 10/07/23 06:08 Est Cr Clr Drug Dosing 105.3 ml/min 10/07/23 06:08 Est GFR ( Amer) 110.8 ml/min 10/07/23 06:08 Est GFR (Non-Af Amer) 95.6 ml/min 10/07/23 06:08 BUN/Creatinine Ratio 13.9 (10-20) 10/07/23 06:08 Glucose 91 mg/dl (70-99(Fasting)) 10/07/23 06:08 Lactate 1.3 mmol/L (0.4-2.0) 10/03/23 09:24 Calcium 9.5 mg/dl (8.6-10.3) 10/07/23 06:08 Magnesium 2.2 mg/dl (1.7-2.4) 10/03/23 09:24 Total Bilirubin 0.5 mg/dl (0.2-1.0) 10/03/23 09:24 Direct Bilirubin 0.1 mg/dl (0-0.2) 10/03/23 09:24 AST 25 U/L (13-39) 10/03/23 09:24 ALT 19 U/L (7-52) 10/03/23 09:24 Alkaline Phosphatase 127 U/L (34-104) H 10/03/23 09:24 Troponin I High Sens 10.3 pg/ml (0-14) 10/03/23 09:24 Total Protein 9.4 gm/dl (6.0-8.3) H 10/03/23 09:24 Albumin 4.8 gm/dl (3.4-5.0) 10/03/23 09:24 Procalcitonin < 0.05 ng/ml (0-0.5) 10/03/23 09:24 Random Vancomycin 11.5 mcg/ml (10-20) 10/06/23 09:44 Impressions Chest X-Ray 10/03/23 09:16 XR chest 1V portable HISTORY: Sepsis COMPARISON: Chest CT 11/20/2018. FINDINGS: The lungs are clear. Cardiac silhouette is normal in size. No pleural effusions. No pneumothorax. IMPRESSION: No acute process. ACT 112: Negative or not required by law. Electronically signed by: Juan Alberto Ibarra M.D. 10/03/2023 9:45 AM Hospital Course (1) Preseptal cellulitis of right eye: (2) JOSE (acute kidney injury): (3) Adverse reaction to sulfa antibiotic: Plan 53 yr old F who is otherwise healthy being managed for the following: Periorbital Cellulitis --Face CT: Right cheek and periorbital preseptal subcutaneous edema suggestive of cellulitis. No abscess. No postseptal inflammatory changes.Likely reactive cervical chain lymph nodes. --Superficial wound culture from 2/5 grew coagulase-negative staph and gram- positive bacilli -- Blood cultures negative to date --Failed Bactrim/Augmentin therapy Continue vancomycin, Rocephin>> changed to vancomycin, Unasyn Appreciate behavioral sciences department chair input Benadryl as needed Clinically improved Plan to transition to Augmentin and doxycycline to complete the antibiotic course JOSE Likely due to Bactrim use Creatinine levels normalized with IV fluids Avoid nephrotoxic agents as able Monitor renal function Received IV fluids Resolved Hypertension Started on amlodipine 5 mg daily Monitor Obesity BMI 35 DVT Px: Encourage ambulation SCDs Code Status FULL CODE Total Time Total Time Spent Total Time Spent (In Minutes): 56 minutes Discharge Plan Discharge Items Patient Disposition: Home - Self-Care Reason For Visit: KKEE ORBITAL CELLILITIS Discharge Diagnosis: Right Periorbital Cellulitis Acute kidney injury Hypertension Condition on Discharge: Good Activity: Resume your previous activity Lifting: Gradually increase as tolerated Bathing: No limitations Exercise/Sports: Gradually increase as tolerated Driving/Machine Use: Resume 1 day after discharge Weightbearing: Full weightbearing Non-emergency contact: Primary Care Provider and Surgeon Call non-emergency contact if: your temperature is above 101.5, your wound has increased redness, your wound has increased drainage and your wound pain has increased Follow-up/Referrals: Saud Nelson MD [Primary Care Provider] - (Date & Time 10/10/2023 2:40 PM Provider Saud Nelson MD Department [facility] ) Coleman Sheffield DMD [Physician] - Diet: Heart Healthy Addtl Attending Provider Instructions: ADDITIONAL ACTIVITY RECOMMENDATIONS: * [place] teeth after every meal. It is very important to keep your mouth clean to prevent infection. * it is very important to keep well hydrated SPECIAL CARE INSTRUCTIONS: * Keep a cool compress on the side of your face for the next 24 to 36 hours. This will help keep the swelling down. * Take the antibiotic for the next 7 days * Return to the office for a follow up check up on: please call to arrange a follow up so I can see you in 7-10 * office address--[id number] phone # [phone] Add Condenser Winder Provider Instructions: Follow-up with your primary care physician Dr. Nelson on 10/10/2023 2:40 PM Follow-up with your surgeon Dr. Sheffield as recommended -- Complete the antibiotic course doxycycline 100 mg two times a day for 5 more days and Augmentin for 7 more days -- Final blood cultures are pending at the time of discharge. Follow-up with your physician for results. -- Monitor your blood pressure regularly at home. Discuss with your physician for further adjustment of medications as needed Seek immediate medical attention if your symptoms reoccur or worsen Please take all medications as instructed on discharge list below. Please call if you have any questions or problems. You can reach a [facility] hospitalist on duty at [facility] 24 hours a day by calling [phone] Pending Studies at Discharge: No Stand-Alone Forms: My [facility] [employer], Smoking Cessation Medications and DC Order Prescriptions: New amlodipine [Norvasc] 5 mg Tablet 5 mg PO QAM Qty: 30 0RF Advanced Probiotic 625 mg (10 billion cell) Capsule 2 cap PO DAILY Qty: 30 0RF doxycycline hyclate 100 mg capsule 100 mg PO BID Qty: 10 0RF Continued triamcinolone acetonide 0.1 % ointment 1 applic TOPICAL BID Wegovy 2.4 mg/0.75 mL pen injector 2.4 mg SUBCUT WK amoxicillin-pot clavulanate 875-125 mg tablet 1 tab PO BID 10 Days Qty: 20 0RF Discontinued sulfamethoxazole-trimethoprim 800-160 mg tablet 1 tab PO BID Discharge Orders: Discharge Order (Routine); Ordered 10/07/23 Ordered By: Margarito Alfonso Admission Data Admit Date/Time: 10/03/23 11:18 Attending Provider: Margarito Alfonso Admit Provider: Ruth Odell Primary Care Provider: Saud Nelson Other Providers: Ruth Odell
[2023-10-07] MEDS: ADVANCED PROBIOTIC 1250 MG CAPSULE PO SCH (12:01)
== END 2023-10-07 13:33 | disposition home or self-care (01) | DRG 603 ==
LOC: ED 08:41 → SUATTDRO 11:18 → EDINP 11:18 → 3W 14:16